=== PATIENT | male | born 1965 | race Hispanic/Latino ===

== ENCOUNTER 2017-10-29 09:45 | Emergency (ER) | payer BC ==
[2017-10-29 10:17] VITALS: BP 154/78
--- NOTE | 2017-10-29 11:53 | Emergency Department Report ---
ED Rash HPI - HPI Chief Complaint: Wound/Laceration Stated Complaint: LEFT ANKLE BLEED Time Seen by Provider: 10/29/17 11:52 Duration: Today Location: Lower Extremities Suspected Cause: Other (patient reports that he accidentally nicked his leg with his fingernail.) Rash Symptoms: No Itching, No Facial Swelling, No Tongue/Oral Swelling, No Breathing Difficulties, No Choking Sensation, No Wheezing/Dyspnea, No Peeling, No Blistering, No Fever, No Lightheaded, No Malaise, No Myalgias Other History: This is a 52-year-old male who here reported that he has left ankle bleeding from accidentally naked in his left ankle vein with fingernail. He said he was having a lot of bleeding at home. He said he could not stop the bleeding because it was a varicose vein. Tetanus status is not up-to-date. He denies any pain. Patient came by EMS who placed pressure dressing. Denies any numbness or tingling. Denies any dizziness. He does take aspirin. ED Review of Systems ROS: Stated complaint: LEFT ANKLE BLEED Other details as noted in HPI Constitutional: denies: chills, fever Respiratory: denies: cough, shortness of breath, SOB with exertion, SOB at rest , stridor, wheezing Cardiovascular: denies: chest pain, palpitations, edema, syncope Gastrointestinal: denies: abdominal pain, nausea, vomiting, diarrhea Musculoskeletal: denies: back pain, joint swelling, arthralgia Skin: other (abrasion to left). denies: rash, lesions Neurological: denies: headache, weakness, paresthesias, vertigo Hematological/Lymphatic: easy bleeding, easy bruising ED Past Medical Hx - Past Medical History Previous Medical History?: Yes Hx Hypertension: Yes Hx Diabetes: Yes Hx Deep Vein Thrombosis: Yes Hx GERD: Yes Hx Arthritis: Yes (DJ of spine) - Surgical History Past Surgical History?: Yes Additional Surgical History: hernia repair. tonsillectomy - Family History Family history: hypertension - Social History Smoking Status: Never Smoker Substance Use Type: Alcohol - Medications Home Medications: Home Medications Medication Instructions Recorded Confirmed Last Taken Type cephALEXin [Keflex] 500 mg PO Q8HR 7 Days #21 cap 10/29/17 Unknown Rx Rash Exam - Exam General: Vital signs noted. No distress. Alert and acting appropriately. This is a 52-year-old male well-nourished well-developed in no acute distress. HEENT: No Periorbital Edema, No Conjuctival Injection, No Chemosis, No Perioral Edema, No Tongue Edema, No Uvular Edema, No Compromised Airway, No Drooling Lungs: Yes Good Air Exchange (CTAB), No Wheezes, No Ronchi, No Stridor, No Cough , No Labored Respirations, No Retractions, No Use of Accessory Muscles, No Other Abnormal Lung Sounds Heart: Yes Regular (S1 and S2 tachycardic), No Murmur Front/Back of Body, Lg (Color): 1 - Patient does have small abrasion sites to left lower leg and ankle, inner. Located over varicose vein. No bleeding noted at present. Skin: Yes Tenderness (left inner distal leg and ankle), Yes Other (patient with abrasion over varicose vein to the left inner distal leg. Bleeding has stopped) , No Urticarial Rash, No Maculopapular Rash, No Morbilliform rash, No Bulla(e), No Excoriations, No Weeping, No Erythema, No Edema, No Encrustations Other: Positive: Abdomen Normal, Neurologic Normal, Musculoskeletal Normal ED Course Vital Signs 10/29/17 10:13 Temperature 98.4 F Pulse Rate 111 H Respiratory 18 Rate Blood Pressure 154/78 O2 Sat by Pulse 95 Oximetry - Reevaluation(s) Reevaluation #1: 10/29/17 13:00 Area cleansed with normal saline and Neosporin ointment was applied followed by pressure dressing. Patient instructed to stop aspirin for couple days. Patient given Boostrix 0.5 mL in emergency room to update tetanus ED Medical Decision Making - Medical Decision Making This is a [age]-year-old male here reported that he accidentally nicked himself with his fingernail on varicose vein to his left lower leg this morning. He came by EMS because he said the bleeding would not stop. Patient was seen and examined by myself and found to have small abrasion over varicose vein which pressure dressing was placed and after removing pressure dressing no bleeding noted. Physical findings normal except he has small abrasion to his left distal leg, inner over varicose vein. Area cleansed with normal saline and Neosporin ointment placed at the site followed by pressure dressing . Patient given tetanus vaccine booster 0.5 mL. He is instructed to stop aspirin or 2 days and he voiced understanding. I instructed the patient to keep affected area clean and dry and upper abdomen antibiotic to help with healing. Patient does not have a primary care physician/instructed him to follow-up with his primary care physician in 2 days and if bleeding becomes uncontrollable to return to the emergency room [facility] and he voiced understanding. Vital signs are stable afebrile and is nontoxic in appearance. Discharged home a prescription for Keflex. Critical care attestation.: If time is entered above; I have spent that time in minutes in the direct care of this critically ill patient, excluding procedure time. ED Disposition Clinical Impression: Abrasion, Bleeding from varicose vein Leg injury Qualifiers: Encounter type: initial encounter Laterality: left Qualified Code(s): S89.92XA - Unspecified injury of left lower leg, initial encounter Disposition: DC-01 TO HOME OR SELFCARE Is pt being admited?: No Does the pt Need Aspirin: No Condition: Stable Instructions: Varicose Veins (ED), Abrasion (ED) Additional Instructions: Follow up with primary care physician in 2 days Keep affected ear clean and dry and apply pressure dressing for the next 24 hours. Take antibiotic as prescribed if Bleeding becomes uncontrollable, return to the emergency room Prescriptions: cephALEXin [Keflex] 500 mg PO Q8HR 7 Days #21 cap Referrals: PRIMARY CAREMD [Primary Care Provider] - 10/31/17 Forms: Work/School Release Form(ED)
[2017-10-29] MEDS ORDERED: TRIPLE ANTIBIOTIC TP ONE (11:54)
[2017-10-29] MEDS ORDERED: BOOSTRIX IM ONE (11:55)
== END 2017-10-29 13:32 | disposition home or self-care (01) ==
LOC: ED 09:45
DX: S80.812A Abrasion, left lower leg, initial encounter (principal); S89.92XA Unspecified injury of left lower leg, initial encounter; I10 Essential (primary) hypertension; E11.9 Type 2 diabetes mellitus without complications; K21.9 Gastro-esophageal reflux disease without esophagitis; M19.90 Unspecified osteoarthritis, unspecified site; Z86.718 Personal history of other venous thrombosis and embolism; Z90.89 Acquired absence of other organs; Z79.899 Other long term (current) drug therapy; W45.0XXA Nail entering through skin, initial encounter; Y93.89 Activity, other specified; Y99.8 Other external cause status; Y92.89 Other specified places as the place of occurrence of the external cause
CPT/HCPCS: 90471; 90715; A6250

== ENCOUNTER 2018-04-08 23:46 | Emergency (ER) | payer BC, OTHER ==
[2018-04-09] MEDS ORDERED: NACL 0.9% 1000 ML 1,000 ML IV ONE (00:09)
[2018-04-09] MEDS ORDERED: XYLOCAINE 2%/EPI 1:100,000 INFILTRATI ONE (00:14)
[2018-04-09 00:35] LABS: Basophils % (Auto) 0.6 % (0.0-1.8); Eosinophils # (Auto) 0.1 K/mm3 (0.0-0.4); Eosinophils % (Auto) 2.2 % (0.0-4.3); Hemoglobin 12.5 gm/dl (11.8-15.2); Lymphocytes # (Auto) 0.7 K/mm3 (1.2-5.4); Lymphocytes % (Auto) 15.9 % (13.4-35.0); Mean Corpuscular HGB Conc 33 % (32-34); Mean Corpuscular Volume 106 fl (84-94); Monocytes # (Auto) 0.7 K/mm3 (0.0-0.8); Platelet Count 131 K/mm3 (140-440); Red Cell Distribution Width 15.3 % (13.2-15.2)
[2018-04-09 00:49] LABS: INR 1.03 (0.87-1.13); Partial Thromboplastin Time 23.3 Sec. (24.2-36.6)
[2018-04-09 00:50] LABS: BUN/Creatinine Ratio 14; Blood Urea Nitrogen 10 mg/dL (9-20); Calcium 9.6 mg/dL (8.4-10.2); Hemolysis Index 35
--- NOTE | 2018-04-09 01:17 | Emergency Department Report ---
- General Chief Complaint: Extremity Injury, Lower Stated Complaint: VEIN RUPTURE Time Seen by Provider: 04/09/18 00:03 Source: EMS, old records reviewed Mode of arrival: Stretcher Limitations: No Limitations - History of Present Illness Initial Comments: 52-year-old male with a past medical history of arthritis, diabetes, hypertension, multiple varicose veins, and GERD presents to the hospital complaints of bleeding varicose veins. Patient states that a scab has developed or one of his varicose veins in a spontaneously ruptured tonight. Patient reports a lot of bleeding. Presents with a pressure bandage placed by EMS. This was removed by triage nurse and patient was still having significant pistol-like bleeding from the vein. Wound was redressed prior to my evaluation. She states he had a similar episode here in October of last year. At that time bleeding stopped spontaneously with pressure bandage. Patient received a tetanus shot at that time. Patient denies blood thinner use - Related Data Previous Rx's Medication Instructions Recorded Last Taken Type cephALEXin [Keflex] 500 mg PO Q8HR 7 Days #21 cap 04/09/18 Unknown Rx Allergies Allergy/AdvReac Type Severity Reaction Status Date / Time No Known Allergies Allergy Unverified 10/29/17 10:12 ED Review of Systems ROS: Stated complaint: VEIN RUPTURE Other details as noted in HPI Comment: All other systems reviewed and negative ED Past Medical Hx - Past Medical History Hx Hypertension: Yes Hx Diabetes: Yes Hx GERD: Yes Hx Arthritis: Yes (DJ of spine) - Surgical History Additional Surgical History: hernia repair. tonsillectomy - Social History Smoking Status: Never Smoker Substance Use Type: Alcohol - Medications Home Medications: Home Medications Medication Instructions Recorded Confirmed Last Taken Type cephALEXin [Keflex] 500 mg PO Q8HR 7 Days #21 cap 04/09/18 Unknown Rx ED Physical Exam - General Limitations: No Limitations - Other Other exam information: General: No limitations, patient is alert in no acute distress Head exam: Atraumatic, normocephalic Eyes exam: Normal appearance ENT: Moist mucous membrane, normal oropharynx Neck exam: Normal inspection, full range of motion, no meningismus nontender Respiratory exam: Clear to auscultation bilateral, no wheezes, rales, crackles Cardiovascular: Normal rate and rhythm, normal heart sounds Abdomen: Soft, nondistended, and nontender, with normal bowel sounds, no re bound, or guarding Extremity: Full range of motion, upon removal her right lower leg pressure bandage lateral distal leg bleeding varicose vein was identified. Bleeding has decreased but oozing persists. Back: Normal Inspection Neurologic: Alert, oriented x3, cranial nerves intact, no motor or sensory deficit Psychiatric: normal affect, normal mood Skin: Warm, dry, intact ED Course Vital Signs 04/08/18 23:53 Temperature 99.5 F Pulse Rate 109 H Respiratory 20 Rate Blood Pressure 133/64 [Left] O2 Sat by Pulse 95 Oximetry - Laceration /Wound Repair Right Lower Leg Wound Location: lower extremity Wound Length (cm): 1 (mm) Wound Explored: clean Anesthesia: Lidocaine w/ Epi Volume Anesthetic (ccs): 3 Suture Size/Type: 4:0 Number of Sutures: 1 (vicyrl figer 8 suture) Layer Closure?: No Sterile Dressing Applied?: Yes Progress: 1 single figure 8 Stitch placed at area of bleeding varicose vein. Hemostasis achieved. Pressure dressing reapplied. ED Medical Decision Making - Lab Data Result diagrams: 04/09/18 00:25 04/09/18 00:25 Lab Results 04/09/18 04/09/18 04/09/18 Range/Units 00:25 00:25 00:25 WBC 4.4 L (4.5-11.0) K/mm3 RBC 3.60 L (3.65-5.03) M/mm3 Hgb 12.5 (11.8-15.2) gm/dl Hct 38.0 (35.5-45.6) % MCV 106 H (84-94) fl MCH 35 H (28-32) pg MCHC 33 (32-34) % RDW 15.3 H (13.2-15.2) % Plt Count 131 L (140-440) K/mm3 Lymph % (Auto) 15.9 (13.4-35.0) % [place] % (Auto) 15.0 H (0.0-7.3) % Eos % (Auto) 2.2 (0.0-4.3) % Baso % (Auto) 0.6 (0.0-1.8) % Lymph # 0.7 L (1.2-5.4) K/mm3 [place] # 0.7 (0.0-0.8) K/mm3 Eos # 0.1 (0.0-0.4) K/mm3 Baso # 0.0 (0.0-0.1) K/mm3 Seg Neutrophils % 66.3 (40.0-70.0) % Seg Neutrophils # 2.9 (1.8-7.7) K/mm3 PT 13.9 (12.2-14.9) Sec. INR 1.03 (0.87-1.13) APTT 23.3 L (24.2-36.6) Sec. Sodium 135 L (137-145) mmol/L Potassium 4.0 (3.6-5.0) mmol/L Chloride 100.4 (98-107) mmol/L Carbon Dioxide 20 L (22-30) mmol/L Anion Gap 19 mmol/L BUN 10 (9-20) mg/dL Creatinine 0.7 L (0.8-1.5) mg/dL Estimated GFR > 60 ml/min BUN/Creatinine Ratio 14 % Glucose 152 H (75-100) mg/dL Calcium 9.6 (8.4-10.2) mg/dL - Medical Decision Making Successful treatment of bleeding varicose vein with a suture since patient is a diabetic will be placed empirically on Keflex. Absorbable suture placed. Outpatient follow-up recommended pt received 1 L NS in ed tachycardia improved no anemia mild thrombocytopenia noted. dressing placed prior to d/c but after 1 hour of obs and dressing, no recurrent bleeding - Differential Diagnosis coagulopathy, bleeding varicose vein Critical Care Time: No Critical care attestation.: If time is entered above; I have spent that time in minutes in the direct care of this critically ill patient, excluding procedure time. ED Disposition Clinical Impression: Bleeding from varicose vein Disposition: DC-01 TO HOME OR SELFCARE Is pt being admited?: No Does the pt Need Aspirin: No Condition: Stable Instructions: Varicose Veins (ED) Additional Instructions: An absorbable stitch was placed as site of bleeding varicose vein therefore you will not need to have this stitch removed. Please follow-up with a primary care doctor and vascular Dr. Return if symptoms worsen as indicated by your discharge instructions. Prescriptions: cephALEXin [Keflex] 500 mg PO Q8HR 7 Days #21 cap Referrals: XENA RAYA MD [Primary Care Provider] - 3-5 Days (primary care doctor) [facility] [Provider Group] - 3-5 Days HILL HANSEN MD [Staff Physician] - 3-5 Days (Vascular surgeon) Time of Disposition: 02:14
[2018-04-09 02:21] VITALS: BP 102/53
== END 2018-04-09 03:45 | disposition home or self-care (01) ==
LOC: ED 23:46
DX: I83.91 Asymptomatic varicose veins of right lower extremity (principal); I10 Essential (primary) hypertension; E11.9 Type 2 diabetes mellitus without complications; K21.9 Gastro-esophageal reflux disease without esophagitis; M47.9 Spondylosis, unspecified
CPT/HCPCS: 35226; 36415; 80048; 85025; 85610; 85730; 99283; J7030